=== PATIENT | female | born 1955 | race African-American/Black ===

== ENCOUNTER → 2020-12-04 | Outpatient (CLI) | payer MEDICARE, OTHER ==
[~2020-12-04] MED LIST: LISINOPRIL-HCT1 EAC1 PO; PRAVACHOL40 MG PO; SYNTHROID100 MCG PO; TYLENOL 500 MG500 MG PO; VITAMIN D32000 UNI1 PO
== END ==
LOC: RAD 10:42
DX: M54.16 Radiculopathy, lumbar region (principal); M25.551 Pain in right hip; R26.2 Difficulty in walking, not elsewhere classified; M79.659 Pain in unspecified thigh; M43.16 Spondylolisthesis, lumbar region; M48.07 Spinal stenosis, lumbosacral region
CPT/HCPCS: 72100; 73502; 73552; 73590

== ENCOUNTER → 2021-09-29 | Outpatient (CLI) | payer MEDICARE, OTHER | LOC: MAMO 09-08 13:00 | DX: Z12.31 Encounter for screening mammogram for malignant neoplasm of breast (principal) | CPT/HCPCS: 77063; 77067 ==

== ENCOUNTER → 2022-01-04 | Outpatient (CLI) | payer MEDICARE, OTHER ==
[~2022-01-04] MED LIST changes: +ALLEGRA ALLERG180 MG PO; +AMLODIPINE BESYL5 MG PO; +GABAPENTIN300 MG PO; +IBU800 MG PO; +MELOXICAM15 MG PO; +METHOCARBAMOL500 MG PO; +MUCINEX600 MG PO; +SINGULAIR10 MG PO; -SYNTHROID100 MCG PO; +SYNTHROID88 MCG PO
== END ==
LOC: KOH-I 12:46
DX: M54.16 Radiculopathy, lumbar region (principal); R29.2 Abnormal reflex; M48.061 Spinal stenosis, lumbar region without neurogenic claudication; G83.4 Cauda equina syndrome; M48.07 Spinal stenosis, lumbosacral region
CPT/HCPCS: 72148

== ENCOUNTER → 2022-01-06 | Outpatient (CLI) | payer MEDICARE, OTHER | LOC: ECHO 11:45 | DX: Z01.810 Encounter for preprocedural cardiovascular examination (principal); I10 Essential (primary) hypertension; E78.00 Pure hypercholesterolemia, unspecified; R73.9 Hyperglycemia, unspecified | CPT/HCPCS: ECHO; 93306 ==

== ENCOUNTER → 2022-01-07 | Outpatient (CLI) | payer MEDICARE, OTHER ==
[2022-01-07 11:29] LABS: HEMOGLOBIN 13.3 gm/dl (12.3-15.3); RED BLOOD COUNT 4.46 M/UL (4.00-5.10)
[2022-01-07 12:29] LABS: BUN/CREATININE RATIO 11 (0-10)
== END ==
LOC: OPSV2 10:00 → EDSTATUS 10:00 → OPSV2 10:01
PROVIDERS: Orthopaedic Surgery
DX: Z01.818 Encounter for other preprocedural examination (principal); M43.16 Spondylolisthesis, lumbar region; M54.16 Radiculopathy, lumbar region; M48.061 Spinal stenosis, lumbar region without neurogenic claudication
CPT/HCPCS: 36415; 71046; 80048; 81001; 85025; 87081; 93005

== ENCOUNTER 2022-01-19 05:13 | Inpatient (IN) | payer MEDICARE, OTHER ==
[~2022-01-19] VITALS: Ht 162.6 cm; Wt 84.4 kg
[~2022-01-19 05:13] MED LIST changes: -LISINOPRIL-HCT1 EAC1 PO; -MELOXICAM15 MG PO; -PRAVACHOL40 MG PO
[2022-01-19] MEDS ORDERED: LISINOPRIL-HCT1 EAC1 PO (07:52)
[2022-01-19] MEDS ORDERED: PRAVASTATIN SOD40 MG PO (07:53)
[2022-01-19] MEDS ORDERED: MELOXICAM15 MG PO (11:54)
[2022-01-19 16:32] LABS: HEMOGLOBIN 10.8 gm/dl (12.3-15.3); RED BLOOD COUNT 3.59 M/UL (4.00-5.10); WHITE BLOOD COUNT 16.1 K/UL (4.5-11.0)
[2022-01-19 16:50] LABS: BUN/CREATININE RATIO 11 (0-10)
[2022-01-20 04:36] LABS: HEMOGLOBIN 9.9 gm/dl (12.3-15.3); RED BLOOD COUNT 3.29 M/UL (4.00-5.10); WHITE BLOOD COUNT 15.8 K/UL (4.5-11.0)
[2022-01-20 04:59] LABS: BUN/CREATININE RATIO 11 (0-10)
[2022-01-21 04:49] LABS: HEMOGLOBIN 9.1 gm/dl (12.3-15.3); RED BLOOD COUNT 2.99 M/UL (4.00-5.10); WHITE BLOOD COUNT 18.4 K/UL (4.5-11.0)
[2022-01-21 04:57] LABS: BUN/CREATININE RATIO 13 (0-10)
[2022-01-22 04:05] LABS: HEMOGLOBIN 9.2 gm/dl (12.3-15.3); RED BLOOD COUNT 3.12 M/UL (4.00-5.10); WHITE BLOOD COUNT 21.2 K/UL (4.5-11.0)
[2022-01-22 04:26] LABS: BUN/CREATININE RATIO 11 (0-10)
[2022-01-22 16:31] LABS: HEMOGLOBIN 9.3 gm/dl (12.3-15.3); RED BLOOD COUNT 3.12 M/UL (4.00-5.10)
--- NOTE | 2022-01-22 19:05 | NUR ---
1630: HEMOVAC REMOVED PER MD ORDER. PT TOLERATED WELL. SURGICAL INCSION CLEANED AND DRESSED PER MD ORDER.
[2022-01-23 05:07] LABS: HEMOGLOBIN 8.9 gm/dl (12.3-15.3); WHITE BLOOD COUNT 17.8 K/UL (4.5-11.0)
[2022-01-23 05:16] LABS: BUN/CREATININE RATIO 14 (0-10)
[2022-01-24 05:13] LABS: HEMOGLOBIN 8.5 gm/dl (12.3-15.3); RED BLOOD COUNT 2.84 M/UL (4.00-5.10); WHITE BLOOD COUNT 16.2 K/UL (4.5-11.0)
[2022-01-24 05:38] LABS: BUN/CREATININE RATIO 12 (0-10)
[2022-01-25 04:41] LABS: BUN/CREATININE RATIO 11 (0-10)
[2022-01-25 09:31] LABS: HEMOGLOBIN 7.9 gm/dl (12.3-15.3); RED BLOOD COUNT 2.74 M/UL (4.00-5.10); WHITE BLOOD COUNT 14.6 K/UL (4.5-11.0)
--- NOTE | 2022-01-25 17:35 | NUR ---
DRESSING APPLIED PER PROVIDERS ORDERS: SURGICAL WOUND CLEAND WITH BETADINE, AIR DRIED, THEN COVERED WITH ISLAND DRESSING, AND TAPED IN PLACE. PT TOLERATED WELL.
[2022-01-26 04:46] LABS: HEMOGLOBIN 7.4 gm/dl (12.3-15.3); RED BLOOD COUNT 2.58 M/UL (4.00-5.10); WHITE BLOOD COUNT 11.6 K/UL (4.5-11.0)
[2022-01-26 04:57] LABS: BUN/CREATININE RATIO 13 (0-10)
[2022-01-27 09:03] LABS: HEMOGLOBIN 9.7 gm/dl (12.3-15.3); WHITE BLOOD COUNT 12.7 K/UL (4.5-11.0)
[2022-01-27 09:05] LABS: RED BLOOD COUNT 3.28 M/UL (4.00-5.10)
[2022-01-27 09:19] LABS: BUN/CREATININE RATIO 13 (0-10)
[2022-01-28] MEDS ORDERED: ROXICODONE5 MG PO (13:21)
[2022-01-28 14:04] LABS: HEMOGLOBIN 10.2 gm/dl (12.3-15.3); RED BLOOD COUNT 3.39 M/UL (4.00-5.10); WHITE BLOOD COUNT 15.6 K/UL (4.5-11.0)
[2022-01-28] MEDS ORDERED: COLACE 100MG C100 MG PO (16:53)
[2022-01-28] MEDS ORDERED: MIRALAX 119 GR119 GM PO (16:53)
== END 2022-01-28 17:10 | disposition home health service (06) | DRG 453 ==
LOC: OR 05:13 → CCU 17:20 → PROG CARE 01-24 18:23 → MED SURG 4 01-24 22:39
PROVIDERS: Internal Medicine; Internal Medicine Infectious Disease; Nurse Practitioner Family; ADMIT Orthopaedic Surgery
PROC: 0SG00AJ Fusion of Lumbar Vertebral Joint with Interbody Fusion Device, Posterior Approach, Anterior Column, Open Approach (ICD-10-PCS; 2022-01-19)
PROC: 0SG3071 Fusion of Lumbosacral Joint with Autologous Tissue Substitute, Posterior Approach, Posterior Column, Open Approach (ICD-10-PCS; 2022-01-19)
PROC: 00QT0ZZ Repair Spinal Meninges, Open Approach (ICD-10-PCS; 2022-01-19)
PROC: 0SG30AJ Fusion of Lumbosacral Joint with Interbody Fusion Device, Posterior Approach, Anterior Column, Open Approach (ICD-10-PCS; 2022-01-19)
PROC: 00NY0ZZ Release Lumbar Spinal Cord, Open Approach (ICD-10-PCS; 2022-01-19)
PROC: 4A11X4G Monitoring of Peripheral Nervous Electrical Activity, Intraoperative, External Approach (ICD-10-PCS; 2022-01-19)
PROC: 3E03329 Introduction of Other Anti-infective into Peripheral Vein, Percutaneous Approach (ICD-10-PCS; 2022-01-19)
PROC: 0SG0071 Fusion of Lumbar Vertebral Joint with Autologous Tissue Substitute, Posterior Approach, Posterior Column, Open Approach (ICD-10-PCS; principal; 2022-01-19 07:30)
PROC: 30233N1 Transfusion of Nonautologous Red Blood Cells into Peripheral Vein, Percutaneous Approach (ICD-10-PCS; 2022-01-26)
DX: M48.061 Spinal stenosis, lumbar region without neurogenic claudication (principal); A41.9 Sepsis, unspecified organism; J18.9 Pneumonia, unspecified organism; Z20.822 Contact with and (suspected) exposure to COVID-19; J98.11 Atelectasis; G97.41 Accidental puncture or laceration of dura during a procedure; K56.7 Ileus, unspecified; D62 Acute posthemorrhagic anemia; M47.26 Other spondylosis with radiculopathy, lumbar region; I10 Essential (primary) hypertension; K59.09 Other constipation; E03.9 Hypothyroidism, unspecified; E87.6 Hypokalemia; D72.828 Other elevated white blood cell count; T38.0X5A Adverse effect of glucocorticoids and synthetic analogues, initial encounter; G47.33 Obstructive sleep apnea (adult) (pediatric); D50.9 Iron deficiency anemia, unspecified; E27.9 Disorder of adrenal gland, unspecified; E78.5 Hyperlipidemia, unspecified; R50.9 Fever, unspecified; Z88.0 Allergy status to penicillin; Z80.1 Family history of malignant neoplasm of trachea, bronchus and lung; Z82.49 Family history of ischemic heart disease and other diseases of the circulatory system; Z90.710 Acquired absence of both cervix and uterus; Z90.49 Acquired absence of other specified parts of digestive tract; Z81.1 Family history of alcohol abuse and dependence; Z83.3 Family history of diabetes mellitus; Z82.3 Family history of stroke; Z80.9 Family history of malignant neoplasm, unspecified; Z98.42 Cataract extraction status, left eye; Z98.41 Cataract extraction status, right eye
CPT/HCPCS: 36415; 36430; 71045; 71275; 72100; 72110; 74018; 76000; 80048; 80053; 80202; 82607; 82728; 82746; 83540; 83550; 83735; 83880; 84132; 85007; 85018; 85025; 85027; 85045; 85610; 85730; 86850; 86900; 86901; 86920; 87040; 87081; 87086; 97116; 97116-GP-CQ; 97162; 97165; 97530; 97530-GP-CQ; 97535; C1713; C1762; J0690; J1040; J1100; J1170; J1644; J1650; J1756; J1956; J2001; J2370; J2405; J2704; J2710; J3010; J3370; J3475; J7040; J7070; J7120; P9016; Q9967; U0003